=== PATIENT | female | born 1945 | race American Indian/Alaskan Native ===

== ENCOUNTER 2024-12-12 12:38 | Emergency (ER) | payer OTHER ==
[2024-12-12] MEDS ORDERED: MAG HYDROX/AL HYDROX/SIMETH 30 ML UNIT-DOSE CUP ONE (13:03)
[2024-12-12] MEDS ORDERED: FAMOTIDINE 20 MG/50 ML IVPB 20 MG/50 ML MG IVPB ONE (13:03)
[2024-12-12 13:09] VITALS: TEMP 98.4; BMI 30.2
[2024-12-12 13:20] LABS: MEAN CELL VOLUME 91.6 fl (79.4-94.8); RDW 13.2 % (12.4-16.6)
[2024-12-12 13:22] LABS: MCHC 32.4 g/dl (32.2-35.5); MEAN PLT VOLUME 9.3 fl (9.4-12.3); PLATELET COUNT 217 x10^3/uL (182-369)
[2024-12-12 13:28] LABS: INR 1.06 (0.83-1.09); PROTHROMBIN TIME (PATIENT) 11.5 SEC (9.7-13.0)
[2024-12-12 13:30] LABS: ACTIVATED PTT 27.1 SECONDS (25.2-36.5)
[2024-12-12] MEDS: SODIUM CHLORIDE 0.9% 500 ML INFUS.BAG IV ONE (13:34)
[2024-12-12] MEDS: FAMOTIDINE 20 MG/50 ML IVPB 20 MG/50 ML MG IVPB ONE (13:34)
[2024-12-12] MEDS: MAG HYDROX/AL HYDROX/SIMETH 30 ML UNIT-DOSE CUP PO ONE (13:34)
[2024-12-12 13:41] LABS: POTASSIUM 3.9 mmol/L (3.5-5.1)
[2024-12-12 13:42] LABS: CALCIUM 10.1 mg/dL (8.5-10.1)
[2024-12-12 13:44] LABS: ALBUMIN 3.7 g/dl (3.4-5.0); BLOOD UREA NITROGEN 20.9 mg/dL (7-18)
[2024-12-12 13:47] LABS: CREATININE 0.8 mg/dL (0.55-1.3)
[2024-12-12 13:48] LABS: BILIRUBIN,TOTAL 0.5 mg/dL (0.2-1); TOT PROT 7.6 g/dl (6.4-8.2)
[2024-12-12 16:30] VITALS: BP 147/88; PULSE 85; RESP 96
== END 2024-12-12 16:31 | disposition home or self-care (01) ==
LOC: EDBD 12:38 → JER 12:38
PROC: 3E033GC Introduction of Other Therapeutic Substance into Peripheral Vein, Percutaneous Approach (ICD-10-PCS; principal; 2024-12-12)
DX: R07.9 Chest pain, unspecified (principal); R42 Dizziness and giddiness
CPT/HCPCS: 36415; 71045-TC-FY; 80053; 83690; 84484; 85025; 85610; 85730; 93005; 93010; 99285-25